=== PATIENT | female | born 1965 | race Caucasian/White ===

== ENCOUNTER → 2022-07-29 | Outpatient (CLI) | payer BC ==
[~2022-07-29] MED LIST: HYDROCHLOROTHIA25 MG; NORCO 325 MG-51 TAB PO; SINGULAIR10 MG
[2022-07-29 16:21] LABS: BASO # 0.04 K/mm3 (0.02-0.10); EOS # 0.23 K/mm3 (0.04-0.40); EOS % 2.3 % (1.0-5.0); HEMATOCRIT 45.2 % (37.0-47.0); HEMOGLOBIN 14.9 g/dL (12.5-16.0); LYMPH# 2.67 K/mm3 (1.50-4.00); MEAN CELL VOLUME 94 fl (78-100); MEAN CORPUSCULAR HEMOGLOBIN 31 pg (27-31); MEAN CORPUSCULAR HGB CONC 33 g/dL (33-37); MEAN PLATELET VOLUME 10.2 fl (7.4-10.4); MONO # 1.02 K/mm3 (0.20-0.80); NEU # 5.92 K/mm3 (1.40-6.50); PLATELET COUNT 260 K/mm3 (130-400); RED BLOOD COUNT 4.83 M/mm3 (4.10-5.30); RED CELL DISTRIBUTION WIDTH 14.1 % (11.5-14.5); WHITE BLOOD COUNT 9.9 K/mm3 (4.8-10.8)
[2022-07-29 16:29] LABS: POTASSIUM 4.3 mmol/L (3.5-5.1)
[2022-07-29 16:30] LABS: ALBUMIN 4.3 g/dL (3.5-5.0)
[2022-07-29 16:31] LABS: CALCIUM 10.1 mg/dL (8.3-10.5)
[2022-07-29 16:32] LABS: TOTAL PROTEIN 7.4 g/dL (6.4-8.3)
[2022-07-29 16:34] LABS: TOTAL BILIRUBIN 0.3 mg/dL (0.2-1.2)
== END ==
LOC: LAB 15:54
PROVIDERS: Physician Assistant
DX: Z00.00 Encounter for general adult medical examination without abnormal findings (principal); Z13.1 Encounter for screening for diabetes mellitus; Z13.29 Encounter for screening for other suspected endocrine disorder; Z13.220 Encounter for screening for lipoid disorders; Z23 Encounter for immunization; I10 Essential (primary) hypertension; K21.9 Gastro-esophageal reflux disease without esophagitis; J01.90 Acute sinusitis, unspecified; J30.2 Other seasonal allergic rhinitis; K90.9 Intestinal malabsorption, unspecified; Z72.0 Tobacco use

== ENCOUNTER → 2023-12-08 | Outpatient (CLI) | payer OTHER ==
[2023-12-08 08:55] LABS: BASO # 0.04 K/mm3 (0.02-0.10); EOS % 2.6 % (1.0-5.0); HEMATOCRIT 45.1 % (37.0-47.0); HEMOGLOBIN 14.8 g/dL (12.5-16.0); LYMPH# 3.05 K/mm3 (1.50-4.00); MEAN CELL VOLUME 95 fl (78-100); MEAN CORPUSCULAR HEMOGLOBIN 31 pg (27-31); MEAN CORPUSCULAR HGB CONC 33 g/dL (33-37); MEAN PLATELET VOLUME 10.3 fl (7.4-10.4); MONO # 0.86 K/mm3 (0.20-0.80); NEU # 3.62 K/mm3 (1.40-6.50); PLATELET COUNT 213 K/mm3 (130-400); RED BLOOD COUNT 4.76 M/mm3 (4.10-5.30); RED CELL DISTRIBUTION WIDTH 14.2 % (11.5-14.5); WHITE BLOOD COUNT 7.8 K/mm3 (4.8-10.8)
[2023-12-08 09:04] LABS: ALBUMIN 4.1 g/dL (3.5-5.0); CALCIUM 9.4 mg/dL (8.3-10.5)
[2023-12-08 09:06] LABS: TOTAL PROTEIN 6.9 g/dL (6.4-8.3)
[2023-12-08 09:08] LABS: TOTAL BILIRUBIN 0.4 mg/dL (0.2-1.2)
== END ==
LOC: LAB 08:38
PROVIDERS: Physician Assistant
DX: I10 Essential (primary) hypertension (principal); R63.4 Abnormal weight loss; E78.5 Hyperlipidemia, unspecified

== ENCOUNTER → 2023-12-18 | Outpatient (CLI) | payer OTHER ==
[~2023-12-18] MED LIST changes: +Iohexol 300 - 100 ML VIAL IV ONE
== END ==
LOC: RAD 07:34
DX: M50.30 Other cervical disc degeneration, unspecified cervical region (principal); K14.8 Other diseases of tongue; J43.9 Emphysema, unspecified
CPT/HCPCS: Q9967

== ENCOUNTER → 2024-04-11 | Outpatient (CLI) | payer OTHER | LOC: RAD 11:59 | DX: C02.9 Malignant neoplasm of tongue, unspecified (principal) | CPT/HCPCS: Q9967 ==